=== PATIENT | male | born 1985 | race Caucasian/White ===

== ENCOUNTER 2017-10-03 03:26 | Emergency (ER) | payer SELFPAY ==
[2017-10-03 03:26] VITALS: BMI 10.8
[2017-10-03 03:43] VITALS: BP 119/74; PULSE 66; RESP 20; TEMP 98.7; O2SAT 98
--- NOTE | 2017-10-03 04:11 | C.PDOC ---
History Of Present Illness 32 year old male presents to the ER with a complaint of sore throat with painful swallowing that began this morning. Patient states he tried gargling with warm salt water at home with no relief. Denies fever or chills. Time Seen by Provider: 10/03/17 03:40 Chief Complaint (Nursing): ENT Problem History Per: Patient History/Exam Limitations: no limitations Onset/Duration Of Symptoms: Days Current Symptoms Are (Timing): Still Present Location Of Pain: None Sick Contacts (Context): None Associated Symptoms: Sore Throat. denies: Fever, Chills Ear Symptoms: Bilateral: None Recent travel outside of the [place]: No Past Medical History Reviewed: Historical Data, Nursing Documentation, Vital Signs Vital Signs: Last Vital Signs Temp 98.7 F 10/03/17 03:45 Pulse 66 10/03/17 03:45 Resp 20 10/03/17 03:45 BP 119/74 10/03/17 03:45 Pulse Ox 98 10/03/17 04:17 - Medical History PMH: No Chronic Diseases Surgical History: No Surg Hx - [facility] Procedures TETANUS TOXOID ADMINIST (07/03/13) Family History: States: Unknown Family Hx - Social History Hx Tobacco Use: Yes Hx Alcohol Use: Yes (socially ) Hx Substance Use: No - Immunization History Hx Tetanus Toxoid Vaccination: No Hx Influenza Vaccination: No Hx Pneumococcal Vaccination: No Review Of Systems Constitutional: Negative for: Fever, Chills ENT: Positive for: Throat Pain Respiratory: Negative for: Cough Gastrointestinal: Negative for: Nausea, Vomiting Physical Exam - Physical Exam Appears: Non-toxic Skin: Normal Color, Warm, Dry Head: Atraumatic, Normacephalic Eye(s): bilateral: Normal Inspection Ear(s): Bilateral: Normal Nose: Normal Oral Mucosa: Moist Throat: Erythema, No Exudate Neck: Normal, Supple Lymphatic: Adenopathy (Anterior) Chest: Symmetrical, No Tenderness Cardiovascular: Rhythm Regular Respiratory: Normal Breath Sounds, No Rales, No Rhonchi, No Wheezing Neurological/Psych: Oriented x3, Normal Speech ED Course And Treatment O2 Sat by Pulse Oximetry: 98 (Room air) Pulse Ox Interpretation: Normal Medical Decision Making Medical Decision Making: Rapid strep ordered, results were negative. Motrin administered. Patient is resting comfortably in the ER in no acute distress, vitals are stable, will discharge home with Rx and instructions to follow up with PMD or return if symptoms worsen. 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 - Scribe Statement The provider has reviewed the documentation as recorded by the Scribe Adablerto Fajardo All medical record entries made by the Lurdesibjillian were at my direction and personally dictated by me. I have reviewed the chart and agree that the record accurately reflects my personal performance of the history, physical exam, medical decision making, and the department course for this patient. I have also personally directed, reviewed, and agree with the discharge instructions and disposition.
== END 2017-10-03 04:54 | disposition home or self-care (01) ==
LOC: C.ER 03:26
DX: J02.9 Acute pharyngitis, unspecified (principal)

== ENCOUNTER 2018-08-07 19:34 | Emergency (ER) | payer SELFPAY ==
[2018-08-07 19:34] VITALS: BMI 10.8
[2018-08-07] MEDS ORDERED: Tdap Vaccine 0.5 ml Vial (10-64 yrs) IM ONE ×2 (19:50→20:15)
[2018-08-07] MEDS ORDERED: Bacitracin 500 Units/gm Oint Foilpak UD TOP ONE (19:50)
[2018-08-07] MEDS ORDERED: Lidocaine 1% Inj (20ml) INFIL STA (19:50)
[2018-08-07] MEDS ORDERED: Lidocaine Hydrochloride 5 ML INJ ONE (19:57)
--- NOTE | 2018-08-07 20:06 | C.PDOC ---
History Of Present Illness 33 year old male with no PMHx presents to the ED for evaluation of a laceration to his left index finger, sustained while at work earlier today. Patient states while using a sharp knife to put up wallpaper, the knife got caught and he accidentally used too much force to pull it down, slicing his left distal index finger. The cut wraps around toward the nail bed, but does not involve nail. Patient immediately cleaned the area and applied a bandaid. Tetanus is not up to date. Time Seen by Provider: 08/07/18 19:46 Chief Complaint (Nursing): Abnormal Skin Integrity History Per: Patient History/Exam Limitations: no limitations Onset/Duration Of Symptoms: Hrs Current Symptoms Are (Timing): Still Present Location Of Injury: Left: Hand Past Medical History Reviewed: Historical Data, Nursing Documentation, Vital Signs Vital Signs: Last Vital Signs Temp 97.9 F 08/07/18 19:41 Pulse 68 08/07/18 19:41 Resp 22 08/07/18 19:41 BP 127/84 08/07/18 19:41 Pulse Ox 100 08/07/18 19:41 - Medical History PMH: No Chronic Diseases - [facility] Procedures TETANUS TOXOID ADMINIST (07/03/13) Family History: States: Unknown Family Hx - Social History Hx Tobacco Use: Yes Hx Alcohol Use: Yes (socially ) Hx Substance Use: No - Immunization History Hx Tetanus Toxoid Vaccination: No Hx Influenza Vaccination: No Hx Pneumococcal Vaccination: No Review Of Systems Constitutional: Negative for: Fever, Chills Musculoskeletal: Positive for: Hand Pain Skin: Positive for: Lesions (to left index finger). Negative for: Rash Neurological: Negative for: Weakness, Numbness Physical Exam - Physical Exam Appears: Well, Non-toxic, No Acute Distress Skin: Warm, Dry, No Rash Extremity: Normal ROM (of all digits), Capillary Refill (less than 2 sec), No Deformity, No Swelling, Other (Superficial linear laceration, approximately 2 cm in length, to the volar medial aspect of left 2nd digit, no nail involvement, no active bleeding) Pulses: Left Radial: Normal, Right Radial: Normal Neurological/Psych: Oriented x3, Normal Speech, Normal Motor, Normal Sensation ED Course And Treatment O2 Sat by Pulse Oximetry: 100 (RA) Pulse Ox Interpretation: Normal Laceration - Laceration Repair L 2nd digit Wound Length (In cm): 2 Description Of Wound: Linear Wound Cleansed With: Betadine, Sterile Saline Anesthesia: Lidocaine 1% Wound Examination: Irrigated With Saline, No FB With Wound Exploration, No Tendon Injury With Wound Exploration Wound Closure: Suture (x 3) Suture Technique And Material Used: Nylon (4:0) Wound Complexity: Simple Medical Decision Making Medical Decision Making: Impression: Laceration, finger Initial Plan: - Tetanus booster updated - Lido 1% ordered for lac repair Laceration repaired without difficulty, tolerated well by patient. Bacitracin and sterile dressing applied. Patient educated regarding wound care and follow-up instructions. Disposition Counseled Patient/Family Regarding: Diagnosis, Need For Followup - Disposition Disposition: HOME/ ROUTINE Disposition Time: 20:11 Condition: GOOD Additional Instructions: Remove and change dressing in 24 hours. Keep area clean and dry. May wash gently with soap and water. Change dressing 1-2 times daily. Apply Bacitracin to wound Return to ER if fever occurs, redness or swelling around wound, pus in the wound. 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 - Scribe Statement The provider has reviewed the documentation as recorded by the Scribe Aicha Stout All medical record entries made by the Scribe were at my direction and personally dictated by me. I have reviewed the chart and agree that the record accurately reflects my personal performance of the history, physical exam, medical decision making, and the department course for this patient. I have also personally directed, reviewed, and agree with the discharge instructions and disposition.
[2018-08-07] MEDS ORDERED: Bacitracin 500 Units/gm Oint Foilpak UD ONE (20:13)
[2018-08-07 20:35] VITALS: BP 120/80; PULSE 78; RESP 14; TEMP 98
[2018-08-07 21:03] VITALS: O2SAT 100
== END 2018-08-07 20:35 | disposition home or self-care (01) ==
LOC: C.ER 19:34
DX: S61.211A Laceration without foreign body of left index finger without damage to nail, initial encounter (principal); W26.0XXA Contact with knife, initial encounter; Y92.89 Other specified places as the place of occurrence of the external cause

== ENCOUNTER 2018-08-17 18:16 | Emergency (ER) | payer SELFPAY ==
[2018-08-17 18:16] VITALS: BMI 10.8
[2018-08-17 18:38] VITALS: BP 115/63; PULSE 77; RESP 18; TEMP 98.5; O2SAT 98
--- NOTE | 2018-08-17 18:44 | C.PDOC ---
History Of Present Illness 33 y/o male presents to the ER for suture removal from left index finger. Patient was evaluated for laceration to finger in [facility] ER on 08/07/18 and he had 3 sutures of 4-0 Nylon placed on the finger. Patient denies having fever,chills, and drainage from the finger, wound redness, denies deformity, weakness, sensory or vascular deficits to left hand. Time Seen by Provider: 08/17/18 18:42 Chief Complaint (Nursing): Suture/Staple Removal History Per: Patient History/Exam Limitations: no limitations Past Medical History Reviewed: Historical Data, Nursing Documentation, Vital Signs Vital Signs: Last Vital Signs Temp 98.5 F 08/17/18 18:37 Pulse 77 08/17/18 18:37 Resp 18 08/17/18 18:37 BP 115/63 08/17/18 18:37 Pulse Ox 98 08/17/18 18:37 - Medical History PMH: No Chronic Diseases Surgical History: No Surg Hx - [facility] Procedures TETANUS TOXOID ADMINIST (07/03/13) Family History: States: No Known Family Hx - Social History Hx Tobacco Use: Yes Hx Alcohol Use: Yes (socially ) Hx Substance Use: No - Immunization History Hx Tetanus Toxoid Vaccination: No Hx Influenza Vaccination: No Hx Pneumococcal Vaccination: No Review Of Systems Except As Marked, All Systems Reviewed And Found Negative. Constitutional: Negative for: Fever, Chills Physical Exam - Physical Exam Appears: Non-toxic, No Acute Distress Skin: Normal Color, Warm, Dry, Other (well healing wound over left index finger closed with sutures x3, no evidenc eof cellulitis, no flactulance) Extremity: Normal ROM (Left index finger), No Tenderness, No Deformity, No Swelling Neurological/Psych: Oriented x3, Normal Speech ED Course And Treatment O2 Sat by Pulse Oximetry: 98 (RA) Pulse Ox Interpretation: Normal Progress Note: Wound cleaned, sutures#3 removed from left nidex finger. Wound appears not completely healed, laceration closed with skin adhesive, steri- strips. Left hand: FAROM of left index finger, no neurovascular deficits. Pt advised on wound care. ref. to f/u with PMD in 2-3 days for re-eavl. Disposition Counseled Patient/Family Regarding: Diagnosis, Need For Followup - Disposition Referrals: [facility] [Outside] Disposition: HOME/ ROUTINE Disposition Time: 19:00 Condition: STABLE Additional Instructions: Keep wound clean, dry for 2-3 days Follow up with PMD in 2-3 days for re-evaluation. 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 - Scribe Statement The provider has reviewed the documentation as recorded by the Lurdesibe Camden Coffman Provider Attestation All medical record entries made by the Lurdesibe were at my direction and personally dictated by me. I have reviewed the chart and agree that the record accurately reflects my personal performance of the history, physical exam, medical decision making, and the department course for this patient. I have also personally directed, reviewed, and agree with the discharge instructions and disposition.
== END 2018-08-17 19:25 | disposition home or self-care (01) ==
LOC: C.ER 18:16
DX: Z48.02 Encounter for removal of sutures (principal)